=== PATIENT | male | born 1945 | race Caucasian/White ===

== ENCOUNTER 2021-08-18 14:19 | Inpatient (IN) | payer MEDICARE ==
[2021-08-18 15:52] LABS: Glucose,Whole Blood 187 mg/dL (75-99)
[2021-08-18 16:07] LABS: Anisocytosis Slight; Basophils # (A) 0.1 k/uL (0-0.2); Basophils % (A) 1 %; Eosinophils # (A) 0.2 k/uL (0-0.7); Eosinophils % (A) 4 %; HGB 10.7 gm/dL (13.0-17.5); Lymphocytes % (A) 15 %; MCHC 33.5 g/dL (31.0-37.0); MCV 107.3 fL (80.0-100.0); Mean Platelet Volume 9.7; Monocytes # (A) 0.4 k/uL (0-1.0); Monocytes % (A) 6 %; Neutrophils # (A) 4.9 k/uL (1.3-7.7); Neutrophils % (A) 73 %; Poikilocytosis Slight; RBC 2.98 m/uL (4.30-5.90); WBC 6.7 k/uL (3.8-10.6)
[2021-08-18 16:08] LABS: Macrocytosis Marked; Platelet Count 41 k/uL (150-450)
--- NOTE | 2021-08-18 16:08 | ED ---
Altered Mental Status HPI - General Chief Complaint: Altered Mental Status [facility] levels elevated Time Seen by Provider: 08/18/21 15:00 Source: family, RN/MD, RN notes reviewed Mode of arrival: wheelchair Limitations: altered mental status - History of Present Illness Initial Comments: 76-year-old male with past medical history of GIBSON presents to the emergency Department with altered mental status from [facility] on the [place]. is at bedside and helps provide the history. States that she saw him yesterday for dinner and he was acting his normal self. She went to visit him today and found him at the nurse's station in the wheelchair confused and nonresponsive. She states that this is frequently his picture when he has high ammonia levels. He is supposed to be on lactulose however she states the facility is very bad at giving him the medication or ensure that he takes it. He was hospitalized a few months ago for a heart attack and states that he has had a decline with multiple hospitalizations since then. No known trauma. No reported fevers. The patient was not having any complaints. No other alleviating, precipitating or modifying factors - Related Data Home Medications Medication Instructions Recorded Confirmed Cholecalciferol [Vitamin D3 (125 125 mcg PO DAILY 08/18/21 08/18/21 Mcg = 5000 Iu)] Donepezil [Aricept] 10 mg PO HS 08/18/21 08/18/21 Famotidine [Pepcid] 20 mg PO DAILY@0600 08/18/21 08/18/21 Ferrous Sulfate [Iron (65 MG 325 mg PO DAILY 08/18/21 08/18/21 Elemental)] Insulin Lispro [humaLOG Kwikpen] See Protocol SQ ACHS 08/18/21 08/18/21 Lactulose 20 gm PO QID 08/18/21 08/18/21 Magnesium Oxide [Mag-Ox] 400 mg PO DAILY 08/18/21 08/18/21 Metoprolol Tartrate [Lopressor] 25 mg PO BID 08/18/21 08/18/21 Mirtazapine 7.5 mg PO HS 08/18/21 08/18/21 Spironolactone [Aldactone] 12.5 mg PO DAILY@0600 08/18/21 08/18/21 risperiDONE [RisperDAL] 1 mg PO HS 08/18/21 08/18/21 Allergies Allergy/AdvReac Type Severity Reaction Status Date / Time chocolate flavor Allergy Unknown Verified 08/18/21 16:40 [id number]-HmD Reductase AdvReac body aches Verified 08/18/21 16:40 Inhibitor box elder tree Allergy Unknown Uncoded 08/18/21 16:40 Review of Systems ROS Statement: Those systems with pertinent positive or pertinent negative responses have been documented in the HPI. ROS Other: All systems not noted in ROS Statement are negative. Past Medical History Past Medical History: Heart Failure, GERD/Reflux Additional Past Medical History / Comment(s): Hepatic failure, pancytopenia, NSTEMI 08/02/2021, hyperosmolality and hypernatremia, dementia, dysphagia, CKD stage 3, metabolic encephalopathy, cardiomegaly, cirrhosis of liver non alco holic, pancreatitis without necrosis History of Any Multi-Drug Resistant Organisms: None Reported Past Surgical History: Cholecystectomy, Joint Replacement Past Psychological History: Depression Smoking Status: Never smoker Past Alcohol Use History: None Reported Past Drug Use History: None Reported General Exam Limitations: altered mental status General appearance: in no apparent distress, lethargic Head exam: Present: atraumatic, normocephalic, normal inspection Eye exam: Present: normal appearance, PERRL, EOMI. Absent: scleral icterus, conjunctival injection, periorbital swelling ENT exam: Present: normal exam, mucous membranes moist Neck exam: Present: normal inspection. Absent: tenderness, meningismus, lymphadenopathy Respiratory exam: Present: normal lung sounds bilaterally. Absent: respiratory distress, wheezes, rales, rhonchi, stridor Cardiovascular Exam: Present: normal rhythm, bradycardia, normal heart sounds. Absent: systolic murmur, diastolic murmur, rubs, gallop, clicks GI/Abdominal exam: Present: soft, normal bowel sounds. Absent: distended, tenderness, guarding, rebound, rigid Extremities exam: Present: normal inspection, full ROM, normal capillary refill. Absent: tenderness, pedal edema, joint swelling, calf tenderness Back exam: Present: normal inspection Neurological exam: Present: altered, other (Follows few commands) Psychiatric exam: Present: flat affect Skin exam: Present: warm, dry, intact, normal color. Absent: rash Course Vital Signs 08/18/21 14:58 Temperature 97.1 F L Pulse Rate 41 L Respiratory 16 Rate Blood Pressure 110/58 O2 Sat by Pulse 99 Oximetry Medical Decision Making - Medical Decision Making Upon arrival patient was placed into room 7. A thorough history and physical exam was performed. Patient does follow some commands. States that he doesn't want to be here. We did obtain laboratory studies which demonstrates a femoral cytopenia 41 which is chronic for the patient. Creatinine 1.5. Ammonia is 111. We did order the lactulose enemas. Patient will be [facility]. He remained in stable condition awaiting a bed - Lab Data Result diagrams: 08/18/21 15:52 08/18/21 15:52 Lab Results 08/18/21 08/18/21 08/18/21 Range/Units 15:50 15:52 15:52 WBC 6.7 (3.8-10.6) k/uL RBC 2.98 L (4.30-5.90) m/uL Hgb 10.7 L (13.0-17.5) gm/dL Hct 32.0 L (39.0-53.0) % MCV 107.3 H (80.0-100.0) fL MCH 36.0 H (25.0-35.0) pg MCHC 33.5 (31.0-37.0) g/dL RDW 17.0 H (11.5-15.5) % Plt Count 41 L (150-450) k/uL MPV 9.7 Neutrophils % 73 % Lymphocytes % 15 % Monocytes % 6 % Eosinophils % 4 % Basophils % 1 % Neutrophils # 4.9 (1.3-7.7) k/uL Lymphocytes # 1.0 (1.0-4.8) k/uL Monocytes # 0.4 (0-1.0) k/uL Eosinophils # 0.2 (0-0.7) k/uL Basophils # 0.1 (0-0.2) k/uL Poikilocytosis Slight Anisocytosis Slight Macrocytosis Marked A PT (9.0-12.0) sec INR (<1.2) APTT (22.0-30.0) sec Sodium (137-145) mmol/L Potassium (3.5-5.1) mmol/L Chloride (98-107) mmol/L Carbon Dioxide (22-30) mmol/L Anion Gap mmol/L BUN (9-20) mg/dL Creatinine (0.66-1.25) mg/dL Est GFR (CKD-EPI)AfAm (>60 ml/min/1.73 sqM) Est GFR (CKD-EPI)NonAf (>60 ml/min/1.73 sqM) Glucose (74-99) mg/dL POC Glucose (mg/dL) 187 H (75-99) mg/dL POC Glu Return Agent Maria D Tracy Calcium (8.4-10.2) mg/dL Total Bilirubin (0.2-1.3) mg/dL AST (17-59) U/L ALT (4-49) U/L Alkaline Phosphatase (38-126) U/L Ammonia 111 H (<30) umol/L Troponin I (0.000-0.034) ng/mL Total Protein (6.3-8.2) g/dL Albumin (3.5-5.0) g/dL 08/18/21 08/18/21 08/18/21 Range/Units 15:52 15:52 15:52 WBC (3.8-10.6) k/uL RBC (4.30-5.90) m/uL Hgb (13.0-17.5) gm/dL Hct (39.0-53.0) % MCV (80.0-100.0) fL MCH (25.0-35.0) pg MCHC (31.0-37.0) g/dL RDW (11.5-15.5) % Plt Count (150-450) k/uL MPV Neutrophils % % Lymphocytes % % Monocytes % % Eosinophils % % Basophils % % Neutrophils # (1.3-7.7) k/uL Lymphocytes # (1.0-4.8) k/uL Monocytes # (0-1.0) k/uL Eosinophils # (0-0.7) k/uL Basophils # (0-0.2) k/uL Poikilocytosis Anisocytosis Macrocytosis PT 13.3 H (9.0-12.0) sec INR 1.3 H (<1.2) APTT 33.0 H (22.0-30.0) sec Sodium 141 (137-145) mmol/L Potassium 4.2 (3.5-5.1) mmol/L Chloride 110 H (98-107) mmol/L Carbon Dioxide 22 (22-30) mmol/L Anion Gap 9 mmol/L BUN 27 H (9-20) mg/dL Creatinine 1.52 H (0.66-1.25) mg/dL Est GFR (CKD-EPI)AfAm 51 (>60 ml/min/1.73 sqM) Est GFR (CKD-EPI)NonAf 44 (>60 ml/min/1.73 sqM) Glucose 201 H (74-99) mg/dL POC Glucose (mg/dL) (75-99) mg/dL POC Glu Return Agent ID Calcium 8.8 (8.4-10.2) mg/dL Total Bilirubin 3.1 H (0.2-1.3) mg/dL AST 43 (17-59) U/L ALT 33 (4-49) U/L Alkaline Phosphatase 91 (38-126) U/L Ammonia (<30) umol/L Troponin I 0.057 H* (0.000-0.034) ng/mL Total Protein 6.1 L (6.3-8.2) g/dL Albumin 2.4 L (3.5-5.0) g/dL - EKG Data EKG Comments: EKG demonstrates sinus bradycardia with a ventricular rate of 55. UT interval 150. QRS 80. QTC of 460. No acute ST segment elevations. Inverted T waves V4 through V6 Disposition Clinical Impression: Hyperammonemic encephalopathy, GIBSON (nonalcoholic steatohepatitis) Disposition: ADMITTED IP TO THIS HOSP Condition: Stable Is patient prescribed a controlled substance at d/c from ED?: No Decision to Admit Reason: Admit from EC Decision Date: 08/18/21 Decision Time: 16:31
[2021-08-18 16:09] LABS: INR 1.3 (<1.2); Prothrombin Time 13.3 sec (9.0-12.0)
[2021-08-18 16:10] LABS: Albumin 2.4 g/dL (3.5-5.0); Calcium 8.8 mg/dL (8.4-10.2); Potassium 4.2 mmol/L (3.5-5.1); Total Bilirubin 3.1 mg/dL (0.2-1.3); Total Protein 6.1 g/dL (6.3-8.2)
[2021-08-18] MEDS ORDERED: NALOXONE 0.4 MG/ML 1 ML VIAL IV PRN (16:32)
[2021-08-18] MEDS: LACTULOSE 200 GM/300 ML (FROM 1/2 GAL JUG) RECTAL SCH (17:17)
--- NOTE | 2021-08-18 17:32 | P.HPIM ---
History of Present Illness H&P Date: 08/18/21 Chief Complaint: CC: Altered mental status Patient is a 76-year-old male with a past medical history of nonalcoholic cirrhosis, chronic kidney disease stage III, diabetes mellitus, depression, GERD, hypertension and recently diagnosed with acute coronary syndrome about 1 month ago which was treated medically as patient was not considered a candidate for invasive treatment since he would not be able to tolerate dual antiplatelet therapies due to thrombocytopenia. states the patient had an echocardiogram done which also revealed that he had an EF of 35%. Patient has also had multiple visits at [facility] for hepatic encephalopathy and most recently about 10 days ago. Patient presents to the ED today with altered mental status. Patient found him at his correction on wheelchair minimally responsive so she told staff to bring him to the ED. Per this happens frequently when his ammonia levels are elevated. states that at the correction they are likely not titrating his lactulose appropriately to the point where he is supposed to have 3-4 bowel movements. Currently patient is encephalopathic and is not able to provide any history. He was found to have a pneumonia level of 111. He is also not able to take any oral medications. Rectal lactulose has been ordered but not given yet. Per patient did have a bowel movement in the ED however his mental status has not improved much. She states that patient has been declining rapidly since his heart attack about a month ago. She states that last night patient mental status was normal and he was able to eat his dessert by himself. Review of Systems Unable to obtain due to altered mental status Past Medical History Past Medical History: Heart Failure, GERD/Reflux Additional Past Medical History / Comment(s): Hepatic failure, pancytopenia, NST PATRICK 08/02/2021, hyperosmolality and hypernatremia, dementia, dysphagia, CKD stage 3, metabolic encephalopathy, cardiomegaly, cirrhosis of liver non alcoholic, pancreatitis without necrosis History of Any Multi-Drug Resistant Organisms: None Reported Past Surgical History: Cholecystectomy, Joint Replacement Past Psychological History: Depression Smoking Status: Never smoker Past Alcohol Use History: None Reported Past Drug Use History: None Reported Medications and Allergies Home Medications Medication Instructions Recorded Confirmed Type Cholecalciferol [Vitamin D3 (125 125 mcg PO DAILY 08/18/21 08/18/21 History Mcg = 5000 Iu)] Donepezil [Aricept] 10 mg PO HS 08/18/21 08/18/21 History Famotidine [Pepcid] 20 mg PO DAILY@0600 08/18/21 08/18/21 History Ferrous Sulfate [Iron (65 MG 325 mg PO DAILY 08/18/21 08/18/21 History Elemental)] Insulin Lispro [humaLOG Kwikpen] See Protocol SQ ACHS 08/18/21 08/18/21 History Lactulose 20 gm PO QID 08/18/21 08/18/21 History Magnesium Oxide [Mag-Ox] 400 mg PO DAILY 08/18/21 08/18/21 History Metoprolol Tartrate [Lopressor] 25 mg PO BID 08/18/21 08/18/21 History Mirtazapine 7.5 mg PO HS 08/18/21 08/18/21 History Spironolactone [Aldactone] 12.5 mg PO DAILY@0600 08/18/21 08/18/21 History risperiDONE [RisperDAL] 1 mg PO HS 08/18/21 08/18/21 History Allergies Allergy/AdvReac Type Severity Reaction Status Date / Time chocolate flavor Allergy Unknown Verified 08/18/21 16:40 [id number] Reductase AdvReac body aches Verified 08/18/21 16:40 Inhibitor box elder tree Allergy Unknown Uncoded 08/18/21 16:40 Physical Exam Osteopathic Statement: *. No significant issues noted on an osteopathic structural exam other than those noted in the History and Physical/Consult. Vitals: Vital Signs Temp Pulse Resp BP Pulse Ox 08/18/21 14:58 97.1 F L 41 L 16 110/58 99 Intake and Output 08/18/21 08/18/21 08/18/21 06:59 14:59 22:59 Other: Weight 68.039 kg General: [atient currently delirious and appears malnourished and chronically debilitated]. Eye: [No scleral icterus]. HENT: [Normocephalic, clear tympanic membranes, normal hearing, dry oral mucosa, no sinus tenderness]. Neck: [Supple, non-tender, no carotid bruits, no JVD, no lymphadenopathy]. Lungs: [Clear to auscultation and percussion, non-labored respiration]. Heart: [Normal rate, regular rhythm, no murmur, gallop or edema]. Abdomen: [Soft, non-tender, non-distended, normal bowel sounds, no masses]. Musculoskeletal: [Normal range of motion and strength, no tenderness or swelling]. Neurologic: [Patient seen moving all 4 extremities spontaneously. He is currently not following any commands]. Psychiatric: [Delirious]. Results CBC & Chem 7: 08/18/21 15:52 08/18/21 15:52 Labs: Abnormal Lab Results - Last 24 Hours (Table) 08/18/21 08/18/21 08/18/21 Range/Units 15:50 15:52 15:52 RBC 2.98 L (4.30-5.90) m/uL Hgb 10.7 L (13.0-17.5) gm/dL Hct 32.0 L (39.0-53.0) % MCV 107.3 H (80.0-100.0) fL MCH 36.0 H (25.0-35.0) pg RDW 17.0 H (11.5-15.5) % Plt Count 41 L (150-450) k/uL Macrocytosis Marked A PT (9.0-12.0) sec INR (<1.2) APTT (22.0-30.0) sec Chloride (98-107) mmol/L BUN (9-20) mg/dL Creatinine (0.66-1.25) mg/dL Glucose (74-99) mg/dL POC Glucose (mg/dL) 187 H (75-99) mg/dL Total Bilirubin (0.2-1.3) mg/dL Ammonia 111 H (<30) umol/L Troponin I (0.000-0.034) ng/mL Total Protein (6.3-8.2) g/dL Albumin (3.5-5.0) g/dL 08/18/21 08/18/21 08/18/21 Range/Units 15:52 15:52 15:52 RBC (4.30-5.90) m/uL Hgb (13.0-17.5) gm/dL Hct (39.0-53.0) % MCV (80.0-100.0) fL MCH (25.0-35.0) pg RDW (11.5-15.5) % Plt Count (150-450) k/uL Macrocytosis PT 13.3 H (9.0-12.0) sec INR 1.3 H (<1.2) APTT 33.0 H (22.0-30.0) sec Chloride 110 H (98-107) mmol/L BUN 27 H (9-20) mg/dL Creatinine 1.52 H (0.66-1.25) mg/dL Glucose 201 H (74-99) mg/dL POC Glucose (mg/dL) (75-99) mg/dL Total Bilirubin 3.1 H (0.2-1.3) mg/dL Ammonia (<30) umol/L Troponin I 0.057 H* (0.000-0.034) ng/mL Total Protein 6.1 L (6.3-8.2) g/dL Albumin 2.4 L (3.5-5.0) g/dL Assessment and Plan Assessment: Hepatic encephalopathy -We'll give lactulose enemas and if able to tolerate oral lactulose -Trend ammonia level Nonalcoholic liver cirrhosis -Patient currently appears euvolemic. Resume home dose spironolactone Chronic systolic heart failure -Per recent echocardiogram showed EF of 35% -Patient appears euvolemic -Resume spironolactone, aspirin, metoprolol Elevated troponin likely due to CK D and chronic heart failure -Resume aspirin and metoprolol -Patient is not a candidate for invasive treatment due to thrombocytopenia and multiple comorbidities Diabetes mellitus -Resume sliding scale insulin Depression/dementia -Hold sedating meds due to altered mental status which include risperidone, mirtazapine. Resume donepezil Prognosis is guarded. Patient's is aware. CODE STATUS: DNR/DNI (discussed with patient's at bedside) DVT prophylaxis: mechanical, no anticoagulation since platelets are less than 50 Discussed with: Patient, ER, rn Anticipated length of stay < than [address]: Return back to [facility] A total of 50 minutes was spent on the care of this complex patient more than 50% of the time was spent in counseling and care coordination.
[2021-08-18] MEDS ORDERED: LACTULOSE 200 GM/300 ML (FROM 1/2 GAL JUG) PO SCH (18:00)
[2021-08-18 20:19] LABS: Glucose,Whole Blood 167 mg/dL (75-99)
[2021-08-18] MEDS: DONEPEZIL 10 MG TAB PO SCH (20:48)
[2021-08-18] MEDS: LACTULOSE 20 GM/30 ML CUP PO SCH (20:51)
[2021-08-18] MEDS: METOPROLOL TARTRATE 25 MG TAB PO SCH (20:51)
[2021-08-18] MEDS: INSULIN ASPART (NovoLOG) 100 UNIT/ML VIAL SQ SCH (20:55)
[2021-08-19] MEDS: LACTULOSE 200 GM/300 ML (FROM 1/2 GAL JUG) RECTAL SCH ×2 (00:47→06:31)
[2021-08-19] MEDS ORDERED: SPIRONOLACTONE 25 MG TAB PO SCH (06:00)
[2021-08-19 06:03] LABS: Glucose,Whole Blood 129 mg/dL (75-99)
[2021-08-19] MEDS: INSULIN ASPART (NovoLOG) 100 UNIT/ML VIAL SQ SCH ×4 (06:23→20:44)
[2021-08-19] MEDS: FAMOTIDINE 20 MG TAB PO SCH (06:28)
[2021-08-19 06:35] LABS: Albumin 2.3 g/dL (3.5-5.0); Calcium 8.5 mg/dL (8.4-10.2); Potassium 4.1 mmol/L (3.5-5.1); Total Bilirubin 3.5 mg/dL (0.2-1.3)
[2021-08-19 06:58] LABS: Anisocytosis Slight; HGB 10.6 gm/dL (13.0-17.5); Hypochromasia Moderate; MCH 36.7 pg (25.0-35.0); MCHC 33.1 g/dL (31.0-37.0); MCV 110.9 fL (80.0-100.0); Macrocytosis Marked; Mean Platelet Volume 10.2; Poikilocytosis Slight; RBC 2.89 m/uL (4.30-5.90); RDW 16.4 % (11.5-15.5); WBC 6.8 k/uL (3.8-10.6)
[2021-08-19 08:49] LABS: Band Neutrophils % 1 %; Eosinophils # (M) 0.34 k/uL (0-0.7); Lymphocytes # (M) 0.88 k/uL (1.0-4.8); Metamyelocytes # (M) 0.07 k/uL (0); Metamyelocytes % 1 %; Monocytes # (M) 0.61 k/uL (0-1.0); Myelocytes # (M) 0.07 k/uL (0); Myelocytes % 1 %; Neutrophils % (M) 71 %; Nucleated Red Blood Cells 0 /100 WBC (0-0); Total Cells Counted 200
[2021-08-19 08:52] LABS: Platelet Count 37 k/uL (150-450)
[2021-08-19] MEDS: METOPROLOL TARTRATE 25 MG TAB PO SCH ×2 (09:30→20:51)
[2021-08-19] MEDS: CHOLECALCIFEROL 125 MCG (5000 IU) TABLET PO SCH (09:30)
[2021-08-19] MEDS: LACTULOSE 20 GM/30 ML CUP PO SCH ×5 (09:30→20:51)
[2021-08-19] MEDS: MAGNESIUM OXIDE 400 MG TAB PO SCH (09:31)
--- NOTE | 2021-08-19 11:02 | P.PN ---
Subjective Progress Note Date: 08/19/21 Principal diagnosis: CC: Altered mental status Patient this morning still remains delirious. His ammonia level has normalized. Nurse is able to give him his oral medications. is not at bedside. Objective - Vital Signs Vital signs: Vital Signs Temp 97.8 F 08/19/21 09:13 Pulse 100 08/19/21 09:13 Resp 17 08/19/21 09:13 BP 117/54 08/19/21 09:13 Pulse Ox 99 08/19/21 09:13 Intake & Output 08/18/21 08/19/21 08/19/21 18:59 06:59 18:59 Intake Total 0 Balance 0 Weight 68.039 kg Intake: Oral 0 Other: Voiding Method Diaper Diaper # Voids 2 # Bowel Movements 3 - Exam General examination - Alert and Oriented 0, appears chronically debilitated Heart - + S1S2 no murmurs Lungs - Clear to auscultation Abdomen soft NT ND +ve BS Extremities - No edema [employer] - Moving all 4 extremities spontaneously Psych - delirious - Labs CBC & Chem 7: 08/19/21 05:54 08/19/21 05:54 Labs: Abnormal Lab Results - Last 24 Hours (Table) 08/18/21 08/18/21 08/18/21 Range/Units 15:50 15:52 15:52 RBC 2.98 L (4.30-5.90) m/uL Hgb 10.7 L (13.0-17.5) gm/dL Hct 32.0 L (39.0-53.0) % MCV 107.3 H (80.0-100.0) fL MCH 36.0 H (25.0-35.0) pg RDW 17.0 H (11.5-15.5) % Plt Count 41 L (150-450) k/uL Lymphocytes # (Manual) (1.0-4.8) k/uL Metamyelocytes # (Man) (0) k/uL Myelocytes # (Manual) (0) k/uL Macrocytosis Marked A PT (9.0-12.0) sec INR (<1.2) APTT (22.0-30.0) sec Chloride (98-107) mmol/L Carbon Dioxide (22-30) mmol/L BUN (9-20) mg/dL Creatinine (0.66-1.25) mg/dL Glucose (74-99) mg/dL POC Glucose (mg/dL) 187 H (75-99) mg/dL Total Bilirubin (0.2-1.3) mg/dL Ammonia 111 H (<30) umol/L Troponin I (0.000-0.034) ng/mL Total Protein (6.3-8.2) g/dL Albumin (3.5-5.0) g/dL 08/18/21 08/18/21 08/18/21 Range/Units 15:52 15:52 15:52 RBC (4.30-5.90) m/uL Hgb (13.0-17.5) gm/dL Hct (39.0-53.0) % MCV (80.0-100.0) fL MCH (25.0-35.0) pg RDW (11.5-15.5) % Plt Count (150-450) k/uL Lymphocytes # (Manual) (1.0-4.8) k/uL Metamyelocytes # (Man) (0) k/uL Myelocytes # (Manual) (0) k/uL Macrocytosis PT 13.3 H (9.0-12.0) sec INR 1.3 H (<1.2) APTT 33.0 H (22.0-30.0) sec Chloride 110 H (98-107) mmol/L Carbon Dioxide (22-30) mmol/L BUN 27 H (9-20) mg/dL Creatinine 1.52 H (0.66-1.25) mg/dL Glucose 201 H (74-99) mg/dL POC Glucose (mg/dL) (75-99) mg/dL Total Bilirubin 3.1 H (0.2-1.3) mg/dL Ammonia (<30) umol/L Troponin I 0.057 H* (0.000-0.034) ng/mL Total Protein 6.1 L (6.3-8.2) g/dL Albumin 2.4 L (3.5-5.0) g/dL 08/18/21 08/19/21 08/19/21 Range/Units 20:17 05:54 05:54 RBC 2.89 L (4.30-5.90) m/uL Hgb 10.6 L (13.0-17.5) gm/dL Hct 32.0 L (39.0-53.0) % MCV 110.9 H (80.0-100.0) fL MCH 36.7 H (25.0-35.0) pg RDW 16.4 H (11.5-15.5) % Plt Count 37 L (150-450) k/uL Lymphocytes # (Manual) 0.88 L (1.0-4.8) k/uL Metamyelocytes # (Man) 0.07 H (0) k/uL Myelocytes # (Manual) 0.07 H (0) k/uL Macrocytosis Marked A PT (9.0-12.0) sec INR (<1.2) APTT (22.0-30.0) sec Chloride 116 H (98-107) mmol/L Carbon Dioxide 18 L (22-30) mmol/L BUN 26 H (9-20) mg/dL Creatinine 1.41 H (0.66-1.25) mg/dL Glucose 135 H (74-99) mg/dL POC Glucose (mg/dL) 167 H (75-99) mg/dL Total Bilirubin 3.5 H (0.2-1.3) mg/dL Ammonia (<30) umol/L Troponin I (0.000-0.034) ng/mL Total Protein 6.0 L (6.3-8.2) g/dL Albumin 2.3 L (3.5-5.0) g/dL 08/19/21 08/19/21 Range/Units 05:54 06:02 RBC (4.30-5.90) m/uL Hgb (13.0-17.5) gm/dL Hct (39.0-53.0) % MCV (80.0-100.0) fL MCH (25.0-35.0) pg RDW (11.5-15.5) % Plt Count (150-450) k/uL Lymphocytes # (Manual) (1.0-4.8) k/uL Metamyelocytes # (Man) (0) k/uL Myelocytes # (Manual) (0) k/uL Macrocytosis PT (9.0-12.0) sec INR (<1.2) APTT (22.0-30.0) sec Chloride (98-107) mmol/L Carbon Dioxide (22-30) mmol/L BUN (9-20) mg/dL Creatinine (0.66-1.25) mg/dL Glucose (74-99) mg/dL POC Glucose (mg/dL) 129 H (75-99) mg/dL Total Bilirubin (0.2-1.3) mg/dL Ammonia 34 H (<30) umol/L Troponin I (0.000-0.034) ng/mL Total Protein (6.3-8.2) g/dL Albumin (3.5-5.0) g/dL Assessment and Plan Assessment: Encephalopathy secondary to Hepatic encephalopathy versus other etiology -Patient's ammonia level has normalized however he still remains encephalopathic without much improvement in his mental status -We'll check UA and CT had -Per patient has been declining rapidly and I believe his worsening mental status could be due to multiple comorbidities with underlying dementia. Once above workup is unremarkable we'll need to discuss goals of care with Nonalcoholic liver cirrhosis -Patient currently appears euvolemic. Resume home dose spironolactone Chronic systolic heart failure -Per recent echocardiogram showed EF of 35% -Patient appears euvolemic -Resume spironolactone, aspirin, metoprolol Elevated troponin likely due to CK D and chronic heart failure -Resume aspirin and metoprolol -Patient is not a candidate for invasive treatment due to thrombocytopenia and multiple comorbidities CK D stage III -Creatinine appears to be at baseline -Trend BMP Diabetes mellitus -Resume sliding scale insulin Depression/dementia -Hold sedating meds due to altered mental status which include risperidone, mirtazapine. Resume donepezil Prognosis is guarded. Patient's is aware. CODE STATUS: DNR/DNI (discussed with patient's at bedside) DVT prophylaxis: mechanical, no anticoagulation since platelets are less than 50 Anticipated length of stay > than [address]: Return back to [facility] vs hospice
--- NOTE | 2021-08-19 11:30 | CT ---
EXAMINATION TYPE: CT brain wo con DATE OF EXAM: 08/19/2021 COMPARISON: None INDICATION: encephalopathy DLP: 1187.4 mGycm, Automated exposure control for dose reduction was used. CONTRAST: None CT of the brain is performed utilizing 3 mm thick sections through the posterior fossa and 3 mm thick sections through the remaining calvarium. Study is performed within 24 hours of arrival to the hosp [facility]. No abnormal hyperdensity is present to suggest an acute intracranial hemorrhage. No mass lesion is evident. No mass effect is evident. No acute infarcts are evident. There is diffuse periventricular white matter hypodensity, this is non specific but can be related to chronic white matter ischemic-type changes. Ventricles and sulci are prominent for the patient age. Paranasal sinuses and mastoid air cells within the [id number] are clear. IMPRESSIONS: 1. Atrophy with chronic appearing periventricular white matter ischemic-type changes.
[2021-08-19 12:14] LABS: Glucose,Whole Blood 171 mg/dL (75-99)
[2021-08-19] MEDS: SODIUM CHLORIDE 0.9% 1,000 ML IV SCH (14:28)
[2021-08-19 17:13] LABS: Glucose,Whole Blood 153 mg/dL (75-99)
[2021-08-19 20:47] LABS: Glucose,Whole Blood 129 mg/dL (75-99)
[2021-08-19] MEDS: risperiDONE 1 MG TAB PO SCH (20:51)
[2021-08-19] MEDS: MIRTAZAPINE 15 MG TAB PO SCH (20:51)
[2021-08-19] MEDS: DONEPEZIL 10 MG TAB PO SCH (20:51)
[2021-08-20] MEDS: SODIUM CHLORIDE 0.9% 1,000 ML IV SCH (03:51)
[2021-08-20 05:59] LABS: Glucose,Whole Blood 150 mg/dL (75-99)
[2021-08-20] MEDS: FAMOTIDINE 20 MG TAB PO SCH (06:22)
[2021-08-20] MEDS: INSULIN ASPART (NovoLOG) 100 UNIT/ML VIAL SQ SCH ×4 (06:22→21:42)
[2021-08-20 06:31] LABS: Anisocytosis Slight; HCT 28.4 % (39.0-53.0); HGB 9.4 gm/dL (13.0-17.5); Hypochromasia Slight; MCH 36.6 pg (25.0-35.0); MCHC 33.2 g/dL (31.0-37.0); MCV 110.3 fL (80.0-100.0); Macrocytosis Marked; Mean Platelet Volume 10.4; Poikilocytosis Slight; RBC 2.58 m/uL (4.30-5.90); WBC 3.9 k/uL (3.8-10.6)
[2021-08-20 06:46] LABS: Calcium 8.2 mg/dL (8.4-10.2); Potassium 4.2 mmol/L (3.5-5.1); Total Bilirubin 2.4 mg/dL (0.2-1.3); Total Protein 5.3 g/dL (6.3-8.2)
[2021-08-20 07:16] LABS: Platelet Count 37 k/uL (150-450)
[2021-08-20] MEDS: CHOLECALCIFEROL 125 MCG (5000 IU) TABLET PO SCH (09:12)
[2021-08-20] MEDS: METOPROLOL TARTRATE 25 MG TAB PO SCH ×2 (09:13→21:43)
[2021-08-20] MEDS: MAGNESIUM OXIDE 400 MG TAB PO SCH (09:13)
[2021-08-20] MEDS: LACTULOSE 20 GM/30 ML CUP PO SCH ×4 (09:13→21:47)
[2021-08-20 11:33] LABS: Glucose,Whole Blood 132 mg/dL (75-99)
[2021-08-20] MEDS: DEXTROSE 5%-0.45% NACL 1,000 ML IV SCH (13:48)
[2021-08-20 13:55] LABS: Appearance,Urine Clear (Clear); Bilirubin,Urine Negative (Negative); Blood,Urine Moderate (Negative); Color,Urine Yellow; Glucose,Urine (UA) Negative (Negative); Hyaline Casts,Urine 1 /lpf (0-2); Ketones,Urine Negative (Negative); Leukocyte Esterase,Urine Negative (Negative); Mucus,Urine Rare /hpf; Nitrite,Urine Negative (Negative); Protein,Urine Negative (Negative); RBC,Urine 20 /hpf (0-5); Specific Gravity,Urine 1.019 (1.001-1.035); Urobilinogen,Urine <2.0 mg/dL (<2.0); WBC,Urine 2 /hpf (0-5)
--- NOTE | 2021-08-20 14:53 | P.PN ---
Subjective Progress Note Date: 08/20/21 Principal diagnosis: CC: Altered mental status This morning patient appears less responsive compared to yesterday. His ammonia level is back to normal. His CT head showed no acute bleed however did show chronic atrophy. UA was also negative for UTI. I had a lengthy discussion with and told her that patient is failing to thrive due to multiple comorbidities. would like to speak with hospice. Objective - Vital Signs Vital signs: Vital Signs Temp 98.7 F 08/20/21 12:00 Pulse 79 08/20/21 14:00 Resp 18 08/20/21 14:00 BP 132/62 08/20/21 12:00 Pulse Ox 96 08/20/21 12:00 Intake & Output 08/19/21 08/20/21 08/20/21 18:59 06:59 18:59 Intake Total 60 Output Total 0 200 Balance 60 -200 Weight 68.039 kg Intake: Oral 60 Output: Urine 0 Stool 200 Other: Voiding Method Diaper Diaper Diaper # Voids 4 # Bowel Movements 2 4 - Exam General examination - Alert and Oriented 0, appears chronically debilitated Heart - + S1S2 no murmurs Lungs - Clear to auscultation Abdomen soft NT ND +ve BS Extremities - No edema 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5-5.0) g/dL Urine Blood (Negative) Urine RBC (0-5) /hpf Urine Mucus (None) /hpf 08/20/21 08/20/21 08/20/21 Range/Units 06:11 06:11 11:30 RBC 2.58 L (4.30-5.90) m/uL Hgb 9.4 L (13.0-17.5) gm/dL Hct 28.4 L (39.0-53.0) % MCV 110.3 H (80.0-100.0) fL MCH 36.6 H (25.0-35.0) pg RDW 17.0 H (11.5-15.5) % Plt Count 37 L (150-450) k/uL Macrocytosis Marked A Sodium 149 H (137-145) mmol/L Chloride 121 H (98-107) mmol/L BUN 27 H (9-20) mg/dL Creatinine 1.58 H (0.66-1.25) mg/dL Glucose 143 H (74-99) mg/dL POC Glucose (mg/dL) 132 H (75-99) mg/dL Calcium 8.2 L (8.4-10.2) mg/dL Total Bilirubin 2.4 H (0.2-1.3) mg/dL Total Protein 5.3 L (6.3-8.2) g/dL Albumin 2.0 L (3.5-5.0) g/dL Urine Blood (Negative) Urine RBC (0-5) /hpf Urine Mucus (None) /hpf 08/20/21 Range/Units 13:35 RBC (4.30-5.90) m/uL Hgb (13.0-17.5) gm/dL Hct (39.0-53.0) % MCV (80.0-100.0) fL MCH (25.0-35.0) pg RDW (11.5-15.5) % Plt Count (150-450) k/uL Macrocytosis Sodium (137-145) mmol/L Chloride (98-107) mmol/L BUN (9-20) mg/dL Creatinine (0.66-1.25) mg/dL Glucose (74-99) mg/dL POC Glucose (mg/dL) (75-99) mg/dL Calcium (8.4-10.2) mg/dL Total Bilirubin (0.2-1.3) mg/dL Total Protein (6.3-8.2) g/dL Albumin (3.5-5.0) g/dL Urine Blood Moderate H (Negative) Urine RBC 20 H (0-5) /hpf Urine Mucus Rare H (None) /hpf Assessment and Plan Assessment: Encephalopathy secondary failure to thrive with underlying dementia and multiple comorbidities Hepatic encephalopathy (ammonia level has normalized however patient's mental status has not improved) -Patient's ammonia level has normalized however he still remains encephalopathic without much improvement in his mental status -CT head negative for acute bleed however shows chronic atrophy. UA negative for UTI -Resume lactulose - is interested in hospice. Hospice consult. Nonalcoholic liver cirrhosis -Patient currently appears hypovolemic. Hold spironolactone Chronic systolic heart failure -Per recent echocardiogram showed EF of 35% -Patient appears hypovolemic -Resume aspirin, metoprolol Elevated troponin likely due to CK D and chronic heart failure -Resume aspirin and metoprolol -Regardless per cardiology (from outpatient records and [facility]) patient is not a candidate for invasive treatment due to thrombocytop enia and multiple comorbidities CK D stage III -Creatinine appears to be at baseline -Trend BMP -Creatinine is stable throughout hospitalization Diabetes mellitus -Resume sliding scale insulin Depression/dementia -Resume home meds Hospice consult is pending CODE STATUS: DNR/DNI (discussed with patient's at bedside) DVT prophylaxis: mechanical, no anticoagulation since platelets are less than 50 Anticipated length of stay > than [address]: Return back to [facility] with hospice vs home with hospice
[2021-08-20 16:36] LABS: Glucose,Whole Blood 194 mg/dL (75-99)
[2021-08-20 20:17] LABS: Glucose,Whole Blood 165 mg/dL (75-99)
[2021-08-20] MEDS: DONEPEZIL 10 MG TAB PO SCH (21:43)
[2021-08-20] MEDS: MIRTAZAPINE 15 MG TAB PO SCH (21:44)
[2021-08-20] MEDS: risperiDONE 1 MG TAB PO SCH (21:44)
[2021-08-21] MEDS: DEXTROSE 5%-0.45% NACL 1,000 ML IV SCH (05:23)
[2021-08-21] MEDS: FAMOTIDINE 20 MG TAB PO SCH (05:24)
[2021-08-21 05:50] LABS: Glucose,Whole Blood 164 mg/dL (75-99)
[2021-08-21] MEDS: INSULIN ASPART (NovoLOG) 100 UNIT/ML VIAL SQ SCH ×4 (06:05→21:45)
[2021-08-21 08:13] LABS: Albumin 2.1 g/dL (3.5-5.0); Calcium 8.5 mg/dL (8.4-10.2); Potassium 4.2 mmol/L (3.5-5.1); Total Bilirubin 2.8 mg/dL (0.2-1.3); Total Protein 5.6 g/dL (6.3-8.2)
[2021-08-21 08:26] LABS: Anisocytosis Slight; Basophils % (A) 1 %; Eosinophils # (A) 0.2 k/uL (0-0.7); Eosinophils % (A) 6 %; HCT 30.1 % (39.0-53.0); Hypochromasia Slight; Lymphocytes % (A) 26 %; MCH 36.9 pg (25.0-35.0); MCV 111.8 fL (80.0-100.0); Macrocytosis Marked; Monocytes # (A) 0.2 k/uL (0-1.0); Monocytes % (A) 6 %; Neutrophils # (A) 2.2 k/uL (1.3-7.7); Neutrophils % (A) 59 %; Poikilocytosis Slight; RBC 2.69 m/uL (4.30-5.90); RDW 16.9 % (11.5-15.5); WBC 3.8 k/uL (3.8-10.6)
[2021-08-21 08:58] LABS: Platelet Count 36 k/uL (150-450)
[2021-08-21] MEDS: METOPROLOL TARTRATE 25 MG TAB PO SCH ×2 (09:21→21:45)
[2021-08-21] MEDS: CHOLECALCIFEROL 125 MCG (5000 IU) TABLET PO SCH (09:21)
[2021-08-21] MEDS: MAGNESIUM OXIDE 400 MG TAB PO SCH (09:21)
[2021-08-21 11:59] LABS: Glucose,Whole Blood 144 mg/dL (75-99)
[2021-08-21] MEDS: LACTULOSE 20 GM/30 ML CUP PO SCH ×4 (12:05→21:45)
--- NOTE | 2021-08-21 12:33 | P.PN ---
Subjective Progress Note Date: 08/21/21 Principal diagnosis: change in mental status Patient still pleasantly confused, no overnight events. Mittens applied for safety. No pain. No sob. Objective - Vital Signs Vital signs: Vital Signs Temp 97.6 F 08/21/21 04:00 Pulse 93 08/21/21 04:00 Resp 18 08/21/21 04:00 BP 141/56 08/21/21 04:00 Pulse Ox 98 08/21/21 04:00 Intake & Output 08/20/21 08/21/21 08/21/21 18:59 06:59 18:59 Output Total 200 Balance -200 Weight 68.039 kg Output: Stool 200 Other: Voiding Method Diaper Incontinent Incontinent # Voids 1 # Bowel Movements 1 - Exam General examination - Alert and Oriented 0, appears chronically debilitated Heart - + S1S2 no murmurs Lungs - Clear to auscultation Abdomen soft NT ND +ve BS Extremities - No edema [employer] - Moving all 4 extremities spontaneously Psych - delirious - Labs CBC & Chem 7: 08/21/21 07:11 08/21/21 07:11 Labs: Abnormal Lab Results - Last 24 Hours (Table) 08/20/21 08/20/21 08/20/21 Range/Units 13:35 16:34 20:16 RBC (4.30-5.90) m/uL Hgb (13.0-17.5) gm/dL Hct (39.0-53.0) % MCV (80.0-100.0) fL MCH (25.0-35.0) pg RDW (11.5-15.5) % Plt Count (150-450) k/uL Macrocytosis Sodium (137-145) mmol/L Chloride (98-107) mmol/L BUN (9-20) mg/dL Creatinine (0.66-1.25) mg/dL Glucose (74-99) mg/dL POC Glucose (mg/dL) 194 H 165 H (75-99) mg/dL Total Bilirubin (0.2-1.3) mg/dL Total Protein (6.3-8.2) g/dL Albumin (3.5-5.0) g/dL Urine Blood Moderate H (Negative) Urine RBC 20 H (0-5) /hpf Urine Mucus Rare H (None) /hpf 08/21/21 08/21/21 08/21/21 Range/Units 05:46 07:11 07:11 RBC 2.69 L (4.30-5.90) m/uL Hgb 10.0 L (13.0-17.5) gm/dL Hct 30.1 L (39.0-53.0) % MCV 111.8 H (80.0-100.0) fL MCH 36.9 H (25.0-35.0) pg RDW 16.9 H (11.5-15.5) % Plt Count 36 L (150-450) k/uL Macrocytosis Marked A Sodium 152 H (137-145) mmol/L Chloride 125 H (98-107) mmol/L BUN 27 H (9-20) mg/dL Creatinine 1.58 H (0.66-1.25) mg/dL Glucose 146 H (74-99) mg/dL POC Glucose (mg/dL) 164 H (75-99) mg/dL Total Bilirubin 2.8 H (0.2-1.3) mg/dL Total Protein 5.6 L (6.3-8.2) g/dL Albumin 2.1 L (3.5-5.0) g/dL Urine Blood (Negative) Urine RBC (0-5) /hpf Urine Mucus (None) /hpf 08/21/21 Range/Units 11:57 RBC (4.30-5.90) m/uL Hgb (13.0-17.5) gm/dL Hct (39.0-53.0) % MCV (80.0-100.0) fL MCH (25.0-35.0) pg RDW (11.5-15.5) % Plt Count (150-450) k/uL Macrocytosis Sodium (137-145) mmol/L Chloride (98-107) mmol/L BUN (9-20) mg/dL Creatinine (0.66-1.25) mg/dL Glucose (74-99) mg/dL POC Glucose (mg/dL) 144 H (75-99) mg/dL Total Bilirubin (0.2-1.3) mg/dL Total Protein (6.3-8.2) g/dL Albumin (3.5-5.0) g/dL Urine Blood (Negative) Urine RBC (0-5) /hpf Urine Mucus (None) /hpf Assessment and Plan Plan: Encephalopathy secondary failure to thrive with underlying dementia and multiple comorbidities Hepatic encephalopathy (ammonia level has normalized however patient's mental status has not improved) -Patient's ammonia level has normalized however he still remains encephalopathic without much improvement in his mental status -CT head negative for acute bleed however shows chronic atrophy. UA negative for UTI -Resume lactulose - is interested in hospice. Hospice consulted. Patient accepted, plan to discharge tomorrow with hospice. Nonalcoholic liver cirrhosis -Patient currently appears hypovolemic. Hold spironolactone Chronic systolic heart failure -Per recent echocardiogram showed EF of 35% -Patient appears hypovolemic -Resume aspirin, metoprolol Elevated troponin likely due to CK D and chronic heart failure -Resume aspirin and metoprolol -Regardless per cardiology (from outpatient records and [facility]) patient is not a candidate for invasive treatment due to thrombocytopenia and multiple comorbidities CK D stage III -Creatinine appears to be at baseline -Trend BMP -Creatinine is stable throughout hospitalization Diabetes mellitus -Resume sliding scale insulin Depression/dementia -Resume home meds CODE STATUS: DNR/DNI DVT prophylaxis: mechanical, no anticoagulation since platelets are less than [address]: Return back to home with hospice
[2021-08-21 17:09] LABS: Glucose,Whole Blood 212 mg/dL (75-99)
[2021-08-21 19:54] LABS: Glucose,Whole Blood 160 mg/dL (75-99)
[2021-08-21] MEDS: DONEPEZIL 10 MG TAB PO SCH (21:45)
[2021-08-21] MEDS: MIRTAZAPINE 15 MG TAB PO SCH (21:45)
[2021-08-21] MEDS: risperiDONE 1 MG TAB PO SCH (21:46)
[2021-08-22 01:08] VITALS: TEMP 96.6
[2021-08-22 06:04] LABS: Glucose,Whole Blood 145 mg/dL (75-99)
[2021-08-22] MEDS: DEXTROSE 5%-0.45% NACL 1,000 ML IV SCH (06:50)
[2021-08-22] MEDS: INSULIN ASPART (NovoLOG) 100 UNIT/ML VIAL SQ SCH (06:57)
[2021-08-22] MEDS: FAMOTIDINE 20 MG TAB PO SCH (06:57)
[2021-08-22] MEDS: CHOLECALCIFEROL 125 MCG (5000 IU) TABLET PO SCH (10:23)
[2021-08-22] MEDS: METOPROLOL TARTRATE 25 MG TAB PO SCH (10:24)
[2021-08-22] MEDS: LACTULOSE 20 GM/30 ML CUP PO SCH (10:24)
[2021-08-22] MEDS: MAGNESIUM OXIDE 400 MG TAB PO SCH (10:24)
[2021-08-22 10:25] VITALS: BP 116/58; PULSE 70; RESP 18
--- NOTE | 2021-08-22 10:42 | P.DS ---
Providers Date of admission: 08/18/21 16:37 Expected date of discharge: 08/22/21 Attending physician: Melia Horne MD Primary care physician: Paco [facility] Course: 76-year-old male with a past medical history of nonalcoholic cirrhosis, chronic kidney disease stage III, diabetes mellitus, depression, GERD, hypertension and recently diagnosed with acute coronary syndrome about 1 month ago which was treated medically as patient was not considered a candidate for invasive treatment since he would not be able to tolerate dual antiplatelet therapies due to thrombocytopenia. states the patient had an echocardiogram done which also revealed that he had an EF of 35%. Patient has also had multiple visits at [facility] for hepatic encephalopathy and most recently about 10 days ago. Patient presents to our ED with altered mental status. Patient found him at his [facility] on [facility] minimally responsive so she told staff to bring him to the ED. Per this happens frequently when his ammonia levels are elevated. states that at the [facility] they are likely not titrating his lactulose appropriately to the point where he is supposed to have 3-4 bowel movements. Currently patient is encephalopathic and is not able to provide any history. He was found to have an ammonia level of 111. stated that patient has been declining rapidly since his heart attack about a month ago. His CT head showed no acute bleed however did show chronic atrophy. UA was also negative for UTI. Lactulose was restarted on admission however his mental status subsequently did not improve. Patient continued to be confused since and was not cooperative with his care. Due to lack of improvement the caring hospitalist had a lengthy discussion with and told her that patient is failing to thrive due to multiple comorbidities. Patient was referred for hospice care. Hospice team evaluated patient and he was accepted for home hospice due to end stage liver disease. Patient will be discharged home with hospice. Time for discharge 36 min Patient Condition at Discharge: Stable Plan - Discharge Summary Discharge Rx Participant: No New Discharge Prescriptions: Discontinued Spironolactone [Aldactone] 12.5 mg PO DAILY@0600 No Action Lactulose 20 gm PO QID Metoprolol Tartrate [Lopressor] 25 mg PO BID risperiDONE [RisperDAL] 1 mg PO HS Magnesium Oxide [Mag-Ox] 400 mg PO DAILY Cholecalciferol [Vitamin D3 (125 Mcg = 5000 Iu)] 125 mcg PO DAILY Ferrous Sulfate [Iron (65 MG Elemental)] 325 mg PO DAILY Famotidine [Pepcid] 20 mg PO DAILY@0600 Insulin Lispro [humaLOG Kwikpen] See Protocol SQ ACHS Mirtazapine 7.5 mg PO HS Donepezil [Aricept] 10 mg PO HS Discharge Medication List Cholecalciferol [Vitamin D3 (125 Mcg = 5000 Iu)] 125 mcg PO DAILY 08/18/21 [History] Donepezil [Aricept] 10 mg PO HS 08/18/21 [History] Famotidine [Pepcid] 20 mg PO DAILY@0600 08/18/21 [History] Ferrous Sulfate [Iron (65 MG Elemental)] 325 mg PO DAILY 08/18/21 [History] Insulin Lispro [humaLOG Kwikpen] See Protocol SQ ACHS 08/18/21 [History] Lactulose 20 gm PO QID 08/18/21 [History] Magnesium Oxide [Mag-Ox] 400 mg PO DAILY 08/18/21 [History] Metoprolol Tartrate [Lopressor] 25 mg PO BID 08/18/21 [History] Mirtazapine 7.5 mg PO HS 08/18/21 [History] risperiDONE [RisperDAL] 1 mg PO HS 08/18/21 [History] Follow up Appointment(s)/Referral(s): Paco Douglass MD [Primary Care Provider] - 1-2 days
== END 2021-08-22 12:30 | disposition hospice, home (50) | DRG 441 ==
LOC: EC 14:19 → 3SCARD 16:37
PROVIDERS: ADMIT Internal Medicine; ATTEND Internal Medicine
DX: K72.10 Chronic hepatic failure without coma (principal); I21.4 Non-ST elevation (NSTEMI) myocardial infarction; I13.0 Hypertensive heart and chronic kidney disease with heart failure and stage 1 through stage 4 chronic kidney disease, or unspecified chronic kidney disease; I50.22 Chronic systolic (congestive) heart failure; F03.90 Unspecified dementia, unspecified severity, without behavioral disturbance, psychotic disturbance, mood disturbance, and anxiety; E11.22 Type 2 diabetes mellitus with diabetic chronic kidney disease; Z66 Do not resuscitate; N18.30 Chronic kidney disease, stage 3 unspecified; R62.7 Adult failure to thrive; K74.60 Unspecified cirrhosis of liver; F32.A Depression, unspecified; K21.9 Gastro-esophageal reflux disease without esophagitis; Z20.822 Contact with and (suspected) exposure to COVID-19; D69.6 Thrombocytopenia, unspecified; E86.1 Hypovolemia; Z68.24 Body mass index [BMI] 24.0-24.9, adult; Z79.899 Other long term (current) drug therapy
CPT/HCPCS: 36415; 70450; 80053; 81001; 82140; 84484; 85025; 85027; 85610; 85730; 87635; 93005; 99285